=== PATIENT | male | born 1965 | race Two or more races ===

== ENCOUNTER 2016-10-28 05:11 | Emergency (ER) | payer MEDICAID ==
[~2016-10-28] VITALS: Ht 172.7 cm; Wt 90.7 kg
[~2016-10-28 05:11] MED LIST: CARV6.252 PO; FURO-144 PO; POTA20TA83 PO
[2016-10-28] MEDS ORDERED: FUROSEMIDE 40 MG/4 ML VIAL IV ONE (05:30)
[2016-10-28] MEDS ORDERED: FUROSEMIDE 40 MG/4 ML VIAL ONE (05:33)
[2016-10-28 05:39] LABS: BASOPHILS % (AUTO) 0.5 % (0.0-2.0); DIFF TOTAL % 100 %; EOSINOPHILS # (AUTO) 0.3 /CMM (0.0-0.7); EOSINOPHILS % (AUTO) 3.7 % (0.0-6.0); HEMATOCRIT 48 % (39-51); LYMPHOCYTES # (AUTO) 2.1 /CMM (0.8-4.8); LYMPHOCYTES % (AUTO) 22.5 % (20.0-44.0); MEAN CORPUSCULAR HEMOGLOBIN 26 PG (26.0-33.0); MEAN CORPUSCULAR HGB CONC 31 g/dl (31.0-36.0); MEAN CORPUSCULAR VOLUME 81 fL (80-96); MONOCYTES # (AUTO) 1.1 /CMM (0.1-1.30); MONOCYTES % (AUTO) 12.3 % (2.0-12.0); NEUTROPHILS # (AUTO) 5.6 /CMM (1.8-8.9); PLATELET COUNT (AUTO) 310 /CMM (150-450); RED BLOOD CELL COUNT(AUTO) 5.86 MIL/uL (4.5-6.0); WHITE BLOOD COUNT (AUTO) 9.1 K/uL (4.3-11.0)
[2016-10-28 05:47] LABS: CALCIUM, SERUM 8.5 mg/dL (8.5-10.1); CREATININE 1.2 mg/dL (0.6-1.3); POTASSIUM 3.7 mmol/L (3.5-5.1)
[2016-10-28 06:11] VITALS: BP 125/97
== END 2016-10-28 06:13 | disposition home or self-care (01) ==
LOC: ER 05:14
DX: L03.90 Cellulitis, unspecified (principal); B95.62 Methicillin resistant Staphylococcus aureus infection as the cause of diseases classified elsewhere; L08.9 Local infection of the skin and subcutaneous tissue, unspecified; I50.9 Heart failure, unspecified; I42.9 Cardiomyopathy, unspecified; R14.0 Abdominal distension (gaseous); Z91.14 Patient's other noncompliance with medication regimen; F17.210 Nicotine dependence, cigarettes, uncomplicated
CPT/HCPCS: 36415; 80048; 85025; 96374; 99284; A4606; J1940; Z7610

== ENCOUNTER 2016-11-02 03:49 | Emergency (ER) | payer MEDICAID ==
[~2016-11-02] VITALS: Ht 170.2 cm; Wt 81.6 kg
[2016-11-02 04:19] VITALS: BP 160/82
== END 2016-11-02 04:54 | disposition home or self-care (01) ==
LOC: ER 03:51
DX: A49.02 Methicillin resistant Staphylococcus aureus infection, unspecified site (principal); I50.9 Heart failure, unspecified; F17.200 Nicotine dependence, unspecified, uncomplicated
CPT/HCPCS: 99283; A4606; Z7610